=== PATIENT | male | born 1975 ===

== ENCOUNTER 2018-05-30 23:25 | Emergency (ER) | payer SELFPAY ==
[2018-05-30 23:25] VITALS: BMI 33.6
[2018-05-31 00:18] VITALS: TEMP 99.1
[2018-05-31] MEDS ORDERED: Amoxicillin-Clav 875-125 mg Tab PO STA (00:21)
--- NOTE | 2018-05-31 00:38 | C.PDOC ---
History Of Present Illness 42 year old male presents to the ER with a complaint of left ear pain for the past 4 days. Denies fever, chills, cough, runny nose, bleeding, or trauma. Time Seen by Provider: 05/30/18 23:55 Chief Complaint (Nursing): ENT Problem History Per: Patient History/Exam Limitations: None Onset/Duration Of Symptoms: Days Current Symptoms Are (Timing): Still Present Symptoms Have Been: Continuous Past Medical History Reviewed: Historical Data, Nursing Documentation, Vital Signs Vital Signs: Last Vital Signs Temp 99.1 F 05/31/18 00:16 Pulse 82 05/31/18 00:54 Resp 20 05/31/18 00:54 BP 136/78 05/31/18 00:54 Pulse Ox 97 05/31/18 00:54 Family History: States: Unknown Family Hx - Social History Hx Alcohol Use: Yes Hx Substance Use: No - Immunization History Hx Tetanus Toxoid Vaccination: Yes Hx Influenza Vaccination: Yes Hx Pneumococcal Vaccination: Yes Review Of Systems Constitutional: Negative for: Fever, Chills ENT: Positive for: Ear Pain. Negative for: Nose Discharge Respiratory: Negative for: Cough Gastrointestinal: Negative for: Nausea, Vomiting Physical Exam - Physical Exam Appears: Non-toxic Skin: Normal Color, Warm, Dry Head: Atraumatic, Normacephalic Eye(s): bilateral: Normal Inspection Ear(s): Left: Other (Positive discharge and edema to external canal), Right: Normal Nose: Normal Oral Mucosa: Moist Throat: Normal, No Erythema, No Exudate Neck: Normal, No Midline Cervical Tenderness, No Paracervical Tenderness, Supple Neurological/Psych: Oriented x3, Normal Speech ED Course And Treatment O2 Sat by Pulse Oximetry: 96 (Room air) Pulse Ox Interpretation: Normal Medical Decision Making Medical Decision Making: Augmentin and motrin administered. Patient reports improvement of pain, he is resting comfortably in no acute distress, vitals are stable, will discharge home with Rx and instructions to follow up with PMD. Disposition - Disposition Referrals: Michael Salcido MD [Staff Provider] - Disposition: HOME/ ROUTINE Disposition Time: 00:39 Condition: GOOD Additional Instructions: Follow up with the medical doctor within 1-2 days, Return if worsened, Prescriptions: Amoxicillin/Clavulanate [Augmentin 875 MG-125 MG] 1 tab PO BID #14 tab Ibuprofen [Motrin] 600 mg PO TID #21 tab Neomycin/Polymyxin/Hydrocortis [Cortisporin Otic Susp] 3 drop TOP TID #1 bottle Instructions: Outer Ear Infection (DC) Forms: [employer] (Bots[place]an) Print Language: KAZAKH - Clinical Impression Clinical Impression: Otitis externa - PA / [employer] / Resident Statement MD/DO has reviewed & agrees with the documentation as recorded. - Scribe Statement The provider has reviewed the documentation as recorded by the Scribvee Ott All medical record entries made by the Charlesibvee were at my direction and personally dictated by me. I have reviewed the chart and agree that the record accurately reflects my personal performance of the history, physical exam, medical decision making, and the department course for this patient. I have also personally directed, reviewed, and agree with the discharge instructions and disposition.
[2018-05-31] MEDS ORDERED: Amoxicillin-Clav 875-125 mg Tab PO ONE ×2 (00:44→00:48)
[2018-05-31 00:55] VITALS: BP 136/78; PULSE 82; RESP 20
[2018-05-31 04:40] VITALS: O2SAT 96
== END 2018-05-31 00:54 | disposition home or self-care (01) ==
LOC: C.ER 23:25
DX: H60.92 Unspecified otitis externa, left ear (principal)